=== PATIENT | male | born 1995 | race Caucasian/White ===

== ENCOUNTER 2019-10-08 19:43 | Emergency (ER) | payer SELFPAY ==
--- NOTE | 2019-10-08 20:31 | CT ---
CT CERVICAL SPINE WITH CORONAL AND SAGITTAL REFORMATIONS: 10/08/19 HISTORY: Injury, neck pain. FINDINGS/IMPRESSION: No acute fracture, subluxation, or facet malalignment is seen. No abnormal prevertebral soft tissue s welling is noted. The upper lung yoder are clear. POS: [facility]
== END 2019-10-08 20:28 ==
LOC: NAV ERS 19:43
DX: S50.311A Abrasion of right elbow, initial encounter (principal); F17.210 Nicotine dependence, cigarettes, uncomplicated; V69.9XXA Occupant (driver) (passenger) of heavy transport vehicle injured in unspecified traffic accident, initial encounter
CPT/HCPCS: 72125; L0120